=== PATIENT | male | born 1985 | race Hispanic/Latino ===

== ENCOUNTER 2024-08-10 19:56 | Emergency (ER) | payer OTHER ==
[~2024-08-10] VITALS: Ht 170.2 cm; Wt 126.6 kg
[2024-08-10] MEDS ORDERED: HYDROCODON-ACE1 EA10 PO (20:07)
[2024-08-10] MEDS ORDERED: IBU600 MG PO (20:08)
[2024-08-10 20:17] VITALS: BP 130/82
== END 2024-08-10 20:17 | disposition home or self-care (01) ==
LOC: ED 19:56
DX: K08.89 Other specified disorders of teeth and supporting structures (principal)
CPT/HCPCS: 99282